=== PATIENT | female | born 1970 | race Caucasian/White ===

== ENCOUNTER 2016-08-30 14:49 | Emergency (ER) | payer OTHER ==
[~2016-08-30] VITALS: Ht 177.8 cm; Wt 122.5 kg
[~2016-08-30 14:49] MED LIST: CO-Q-10 200 MG-1 SGL PO; HYDROCHLOROTH12.5 M1 PO; LOPRESSOR 25MG25 MG PO; SERTRALINE HYDR50 MG PO; ZOFRAN4 M1 SL
--- NOTE | 2016-08-30 17:03 | ED UPPER/LOWER EXTREMITY COMPL ---
History of Present Illness General Chief Complaint: Laceration Procedure Stated Complaint: L LEG LAC' Source: patient Exam Limitations: no limitations Vital Signs & Intake/Output Vital Signs & Intake/Output Vital Signs Date Time Temp Pulse Resp B/P B/P Pulse O2 O2 Flow FiO2 Mean Ox Delivery Rate 08/30 1722 97.1 72 18 153/93 99 Room Air 08/30 1457 97.7 73 20 134/85 97 Room Air ED Intake and Output 08/31 0000 08/30 1200 Intake Total Output Total Balance Patient 270 lb Weight Weight Reported by Patient Measurement Method Allergies Coded Allergies: MDX - ASA (aspirin) (ASA (ASPIRIN)) ("I GET STUPID" 05/31/11) "DOPEY" MDX - Cephalosporin (CEPHALOSPORIN) ("I GET A FAT LIP" 05/31/11) SWELLING Reconcile Medications Coenzyme Q10/Vitamin E (Co-Q-10 200 MG-1 Iu) 1 SGL SGL 1 CAP PO DAILY SUPPLEMENT (Reported) Hydrochlorothiazide 12.5 MG TAB 1 TAB PO DAILY WATER PILL (Reported) Metoprolol Tartrate (Lopressor) 25 MG TAB 1 TAB PO BID HEART (Reported) Ondansetron (Zofran Odt) 4 MG ODT 1 ODT SL Q6P PRN NAUSEA SERTRALINE HCL (Sertraline Hydrochloride) 50 MG TAB 0.5 TAB PO DAILY MENTAL HEALTH (Reported) Triage Note: PT STATES SHE WAS CUTTING A BOARD WITH A RAZOR KNIFE AND IT SLIPPED CUTTING HER LEFT LEG. DRSG APPLIED BLEEDING CONTROLLED Triage Nurses Notes Reviewed? yes Onset: Abrupt Duration: hour(s): Timing: single episode today Severity: moderate Method of Injury: laceration No Modifying Factors: none : No Patient currently breastfeeds: No HPI: 46-year-old female presents complaining of laceration to left anterior lower leg. She states that today around 2:30 PM while she was using a razor blade she accidentally slipped and cut her leg. She is unsure of her last tetanus shot. She thinks that there are pieces of wood fragments in the wound. Denies any other skin changes. No fevers or chills. No abnormal discharge from the wound. (FERNANDA ESQUIVEL PA-C) Past History Travel History Traveled to [place] past 21 day No Medical History Any Pertinent Medical History? 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 No (FERNANDA ESQUIVEL PA-C) Review of Systems Review of Systems Constitutional: Reports: no symptoms. EENTM: Reports: no symptoms. Respiratory: Reports: no symptoms. Cardiovascular: Reports: no symptoms. Gastrointestinal/Abdominal: Reports: no symptoms. Genitourinary: Reports: no symptoms. Musculoskeletal: Reports: no symptoms. Skin: Reports: see HPI. Neurological/Psychological: Reports: no symptoms. Hematologic/Endocrine: Reports: no symptoms. Immunological: Reports: no symptoms. All Other Systems: Reviewed and Negative (FERNANDA ESQUIVEL PA-C) Physical Exam Physical Exam General Appearance: well developed/nourished, no apparent distress, alert, awake Head: atraumatic, normal appearance Eyes: Bilateral: normal appearance. Ears, Nose, Throat: hearing grossly normal Neck: normal inspection Back: normal inspection, normal range of motion Leg Left: 2 CM LACERATION TO LEFT ANTERIOR LOWER LEG Neurologic/Tendon: normal sensation, normal motor functions, normal tendon functions Skin: 2CM LACERATION TO LEFT ANTERIOR LOWER LEG (FERNANDA ESQUIVEL PA-C) Progress Differential Diagnosis: cellulitis, contusion, fracture, tendon injury Plan of Care: Current Medications Sig/Lionel Start time Last Medication Dose Stop Time Status Admin Tetanus/Diphtheria 0.5 ML ONCE ONE 08/30 1714 UNVr Toxoids Adsorbed 08/31 1715 (Decavac) Lidocaine/Epinephrine 3 ML ONCE ONE 08/30 1699 UNVr (Lidocaine 2% With 08/30 1700 Epi (2ML) Inj) Tetanus updated today. Wound closed with sutures, patient tolerated procedure well. Wound was extensively irrigated for foreign body or would particles. Patient was informed that there is a chance that a foreign body remains no foreign body was detected on physical exam. Patient will follow up in 7-10 days for suture removal. Patient was educated on signs and symptoms of infection. The patient is in agreement with the plan of care. She will follow up with any new or worsening symptoms or concerns. (FERNANDA ESQUIVEL PA-C) Departure Departure Disposition: HOME OR SELF CARE Condition: Stable Clinical Impression Primary Impression: Laceration Referrals: HIWOT MORALES MD (PCP/Family) Additional Instructions: Keep wound clean and dry, take Tylenol or Motrin as prescribed as needed for pain. Return In 7-10 days for suture removal. Watch for signs of infection including cloudy drainage, redness, swelling, increased pain, streaking up her leg. Return with any worsening symptoms or concerns. No foreign body detected with irrigation, there is always the chance of a foreign body present. Departure Forms: Customer Survey General Discharge Information (FERNANDA ESQUIVEL PA-C) PA/SOFT SUGAR CUTTER Co-Sign Statement Statement: ED Attending supervision documentation- I saw and evaluated the patient. I have also reviewed all the pertinent lab results and diagnostic results. I agree with the findings and the plan of care as documented in the PA's/SOFT SUGAR CUTTER's documentation. x I have reviewed the ED Record and agree with the PA's/SOFT SUGAR CUTTER's documentation. [] Additions or exceptions (if any) to the PAs/SOFT SUGAR CUTTER's note and plan are summarized below: [] (WILD SANCHEZ MD) Procedures Laceration/Wound Repair Laceration/Wound Repair: Wound Location: lower extremity Wound's Depth, Shape: linear, superficial Wound Length (cm): 2 Wound Explored: irrigated extensively Irrigated w/ Saline (ccs): 600 Betadine Prep? Yes Anesthesia: 2% lidocaine Volume Anesthetic (ccs): 6 Wound Repaired With: sutures Suture Size/Type: 4:0 Number of Sutures: 3 Layer Closure? No Sterile Dressing Applied: Yes Tetanus Status: up to date Progress: PATIENT TOLERATED PROCEDURE WELL (FERNANDA ESQUIVEL PA-C)
[2016-08-30 17:22] VITALS: BP 153/93
== END 2016-08-30 18:03 ==
LOC: ERH 14:49
DX: S81.812A Laceration without foreign body, left lower leg, initial encounter (principal); W45.8XXA Other foreign body or object entering through skin, initial encounter; Y93.E8 Activity, other personal hygiene; Y92.9 Unspecified place or not applicable
CPT/HCPCS: 90471; 90714

== ENCOUNTER 2016-09-14 23:17 | Observation (INO) | payer OTHER ==
[~2016-09-14] VITALS: Ht 177.8 cm; Wt 122.5 kg
--- NOTE | 2016-09-15 00:20 | RADIOLOGY REPORT ---
EXAMINATION: XR PORTABLE CHEST CLINICAL INFORMATION: Chest pain. COMPARISON: 05/13/2013 TECHNIQUE: Portable frontal view of the chest was obtained. FINDINGS: Cardiac leads overlie the chest. The lungs are well expanded. There is no focal consolidation, edema, or effusion. No pneumothorax. The cardiomediastinal silhouette is within normal limits. No acute osseous abnormality. IMPRESSION: No acute pulmonary findings.
[2016-09-15 00:28] LABS: ABSOLUTE BASOPHIL COUNT 0 /CUMM (0.0-0.2); ABSOLUTE EOSINOPHIL COUNT 0.2 /CUMM (0.0-0.7); ABSOLUTE GRANULOCYTE CT 2.8 /CUMM (1.4-6.5); ABSOLUTE LYMPH COUNT 2.6 /CUMM (1.2-3.4); ABSOLUTE MONOCYTE COUNT 0.6 /CUMM (0.10-0.60); BASOPHIL % 0.7 % (0.0-2.0); EOSINOPHIL % 2.7 % (0-5); GRANULOCYTE % 44.6 % (42.2-75.2); HEMATOCRIT 36.2 % (37-47); MEAN CORPUSCULAR HGB 27.1 PG (27.0-31.0); MEAN PLATELET VOLUME 8.5 FL (7.4-10.4); PLATELET COUNT 259 /CUMM (130-400); RBC DISTRIBUTION WIDTH 14.4 % (11.5-14.5); RED BLOOD CELL CT 4.42 /CUMM (4.20-5.40); WHITE BLOOD CELL COUNT 6.2 /CUMM (4.8-10.8)
--- NOTE | 2016-09-15 00:31 | ED CARDIAC/CP/PALPITATIONS ---
History of Present Illness General Chief Complaint: Chest Pain Stated Complaint: PT C/O CHEST PAIN HX HTN AND CARDIAC HX Source: patient, old records Exam Limitations: no limitations Vital Signs & Intake/Output Vital Signs & Intake/Output Vital Signs Date Time Temp Pulse Resp B/P B/P Pulse O2 O2 Flow FiO2 Mean Ox Delivery Rate 09/14 2350 97.9 86 20 139/86 96 Room Air ED Intake and Output 09/15 0000 09/14 1200 Intake Total Output Total Balance Patient 122.47 kg Weight Allergies Coded Allergies: MDX - ASA (aspirin) (ASA (ASPIRIN)) ("I GET STUPID" 05/31/11) "DOPEY" MDX - Cephalosporin (CEPHALOSPORIN) ("I GET A FAT LIP" 05/31/11) SWELLING Reconcile Medications Coenzyme Q10/Vitamin E (Co-Q-10 200 MG-1 Iu) 1 SGL SGL 1 CAP PO DAILY SUPPLEMENT (Reported) Hydrochlorothiazide 12.5 MG TAB 1 TAB PO DAILY WATER PILL (Reported) Metoprolol Tartrate (Lopressor) 25 MG TAB 1 TAB PO BID HEART (Reported) Ondansetron (Zofran Odt) 4 MG ODT 1 ODT SL Q6P PRN NAUSEA SERTRALINE HCL (Sertraline Hydrochloride) 50 MG TAB 0.5 TAB PO DAILY MENTAL HEALTH (Reported) Triage Note: PT FROM HOME C/O AROUND 1999 PT ATE DINNER AND NOTICED BURNING "LIKE ACID REFLUX" IN PTS STOMACH AND PT STATED THAT "IT WORKED ITS WAY UP TO MY CHEST WHERE IT FEELS TIGHT" PT STATES NUMBESS/TINGLING IN BILATERAL ARMS. PT DENIES JAW PAIN, BACK PAIN OR SHOULDER PAIN. PT STATES SOB, 97 ON RA, NO DISTRESS NOTED. AWAITING PROVIDER EVAL. Triage Nurses Notes Reviewed? yes HPI: 46F PMH HTN, strong family history of cardiac disease, former smoker, pre- diabetic, HLD presenting with acute episode of RUQ and chest pain. Patient had finished eating, felt acute RUQ pain that travelled to chest and felt like a burning, sour taste her mouth. The pain has settled as a mid-sternal chest tightness. She denies shortness of breath, dyspnea, palpitations, lightheadedness, diaphoresis. Cannot take aspirin as it causes an allergic reaction. No chest pain symptoms in the past several years. Past History Medical History Any Pertinent Medical History? 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 EENTM: Reports: no symptoms. Respiratory: Reports: no symptoms. Cardiovascular: Reports: see HPI. GI: Reports: no symptoms. Genitourinary: Reports: no symptoms. Musculoskeletal: Reports: no symptoms. Skin: Reports: no symptoms. Neurological/Psychological: Reports: no symptoms. Hematologic/Endocrine: Reports: no symptoms. Immunologic/Allergic: Reports: no symptoms. All Other Systems: Reviewed and Negative Physical Exam Physical Exam General Appearance: well developed/nourished, no apparent distress, alert, awake , anxious Head: atraumatic, normal appearance Eyes: Bilateral: normal appearance. Ears, Nose, Throat: normal ENT inspection Neck: normal inspection, full range of motion Respiratory: normal breath sounds, chest non-tender, no respiratory distress, quiet respiration, lungs clear Cardiovascular: regular rate/rhythm Gastrointestinal: soft, non-tender Back: normal range of motion Extremities: normal inspection, normal range of motion, no edema Neurologic/Psych: awake, alert, oriented x 3, normal mood/affect Skin: intact, normal color Progress Differential Diagnosis: AMI, aortic dissection, atrial fibrillation, cholecystitis, CHF/pulm edema, costochondritis, hyperkalemia, hypovolemia, hyperthyroid, hyperventilation, intracranial hemorrhage, musculoskeletal pain, myocarditis, pancreatitis, pericarditis, pneumonia, pneumothorax, PSVT, pulmonary embolism, PUD/GERD, PVCs/PACs, respiratory failure, rib fracture, sepsis, unstable angina, V-fib/V-Tach, WPW syndrome Plan of Care: Orders Procedure Date/time Status TROPONIN LEVEL 09/15 0200 Active EKG 09/15 0200 Active TROPONIN LEVEL 09/14 232 Complete HUMAN BETA HCG SCREEN 09/14 232 Complete D-DIMER 09/14 232 Complete COMPREHENSIVE METABOLIC PANEL 09/14 232 Complete CBC WITHOUT DIFFERENTIAL 09/14 2320 Complete EKG 09/15 2319 Active Laboratory Tests 09/14/16 2352: Anion Gap 11, Estimated GFR 54 L, BUN/Creatinine Ratio 15.5, Glucose 141 H, Calcium 9.8, Total Bilirubin 0.3, AST 34, ALT 57 H, Alkaline Phosphatase 85, Troponin I < 0.01, Total Protein 6.7, Albumin 4.3, Globulin 2.4, Albumin/ Globulin Ratio 1.8, Total Beta HCG NEGATIVE, D-Dimer High Sensitivty < 200, CBC w Diff NO MAN DIFF REQ, RBC 4.42, MCV 82.0, MCH 27.1, RDW 14.4, MPV 8.5, Gran % 44.6, Lymphocytes % 42.4, Monocytes % 9.6 H, Eosinophils % 2.7, Basophils % 0.7 , Absolute Granulocytes 2.8, Absolute Lymphocytes 2.6, Absolute Monocytes 0.6, Absolute Eosinophils 0.2, Absolute Basophils 0, PUBS MCHC 33.0 Initial ED EKG: normal sinus rhythm, no ST T wave changes Prior EKG: unchanged Departure Departure Condition: Stable Clinical Impression Primary Impression: Chest pain Secondary Impressions: GERD (gastroesophageal reflux disease) Referrals: HIWOT MORALES MD (PCP/Family) Departure Forms: Customer Survey General Discharge Information
--- NOTE | 2016-09-15 01:08 | ED CARDIAC/CP/PALPITATIONS ---
History of Present Illness General Chief Complaint: Chest Pain Stated Complaint: PT C/O CHEST PAIN HX HTN AND CARDIAC HX Source: patient, family, old records Exam Limitations: no limitations Vital Signs & Intake/Output Vital Signs & Intake/Output Vital Signs Date Time Temp Pulse Resp B/P B/P Pulse O2 O2 Flow FiO2 Mean Ox Delivery Rate 09/15 0350 98 Room Air 09/15 0157 97.8 67 20 139/82 98 Room Air 09/14 2350 97.9 86 20 139/86 96 Room Air ED Intake and Output 09/15 0000 09/14 1200 Intake Total Output Total Balance Patient 270 lb Weight Allergies Coded Allergies: MDX - ASA (aspirin) (ASA (ASPIRIN)) ("I GET STUPID" 05/31/11) "DOPEY" MDX - Cephalosporin (CEPHALOSPORIN) ("I GET A FAT LIP" 05/31/11) SWELLING Reconcile Medications Coenzyme Q10/Vitamin E (Co-Q-10 200 MG-1 Iu) 1 SGL SGL 1 CAP PO DAILY SUPPLEMENT (Reported) Hydrochlorothiazide 12.5 MG TAB 1 TAB PO DAILY WATER PILL (Reported) Metoprolol Tartrate (Lopressor) 25 MG TAB 1 TAB PO BID HEART (Reported) Ondansetron (Zofran Odt) 4 MG ODT 1 ODT SL Q6P PRN NAUSEA SERTRALINE HCL (Sertraline Hydrochloride) 50 MG TAB 0.5 TAB PO DAILY MENTAL HEALTH (Reported) Triage Note: PT FROM HOME C/O AROUND 1999 PT ATE DINNER AND NOTICED BURNING "LIKE ACID REFLUX" IN PTS STOMACH AND PT STATED THAT "IT WORKED ITS WAY UP TO MY CHEST WHERE IT FEELS TIGHT" PT STATES NUMBESS/TINGLING IN BILATERAL ARMS. PT DENIES JAW PAIN, BACK PAIN OR SHOULDER PAIN. PT STATES SOB, 97 ON RA, NO DISTRESS NOTED. AWAITING PROVIDER EVAL. Triage Nurses Notes Reviewed? yes HPI: 46F PMH HTN, strong family history of cardiac disease, former smoker, pre- diabetic, HLD presenting with acute episode of RUQ and chest pain. Patient had finished eating, felt acute RUQ pain that travelled to chest and felt like a burning, sour taste her mouth. The pain has settled as a mid-sternal chest tightness. She denies shortness of breath, dyspnea, palpitations, lightheadedness, diaphoresis. Cannot take aspirin as it causes an allergic reaction. No chest pain symptoms in the past several years. (THERON FIGUEROA MD) Past History Medical History Any Pertinent Medical History? 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 No (RIO YANG,NELL Snyder) Review of Systems Review of Systems Constitutional: Reports: no symptoms. EENTM: Reports: no symptoms. Respiratory: Reports: no symptoms. Cardiovascular: Reports: see HPI. GI: Reports: no symptoms. Genitourinary: Reports: no symptoms. Musculoskeletal: Reports: no symptoms. Skin: Reports: no symptoms. Neurological/Psychological: Reports: no symptoms. Hematologic/Endocrine: Reports: no symptoms. Immunologic/Allergic: Reports: no symptoms. All Other Systems: Reviewed and Negative (THERON FIGUEROA MD) Physical Exam Physical Exam General Appearance: well developed/nourished, no apparent distress, alert, awake , anxious Head: atraumatic, normal appearance Eyes: Bilateral: normal appearance. Ears, Nose, Throat: normal ENT inspection Neck: normal inspection, supple Respiratory: normal breath sounds, chest non-tender, no respiratory distress, quiet respiration Cardiovascular: regular rate/rhythm Gastrointestinal: soft, non-tender Back: normal range of motion Extremities: normal inspection, normal capillary refill, normal range of motion Skin: intact (THERON FIGUEROA MD) Core Measures ACS in differential dx? Yes ASA ordered for poss ACS? No-d/t known allergy Severe Sepsis Present: No Septic Shock Present: No (RIO YANG,NELL Snyder) Progress Differential Diagnosis: AMI, aortic dissection, atrial fibrillation, cholecystitis, CHF/pulm edema, costochondritis, hyperkalemia, hypovolemia, hyperthyroid, hyperventilation, intracranial hemorrhage, musculoskeletal pain, myocarditis, pancreatitis, pericarditis, pneumonia, pneumothorax, PSVT, pulmonary embolism, PUD/GERD, PVCs/PACs, respiratory failure, rib fracture, sepsis, unstable angina, V-fib/V-Tach, WPW syndrome Plan of Care: Orders Procedure Date/time Status Nothing by Mouth 09/15 B Active Saline Lock 09/[address] in observation 09/16 411 Active Misc Message 09/16 411 Active ED Holding Orders 09/16 411 Active Vital Signs 09/16 411 Active Code Status 09/16 411 Active TROPONIN LEVEL 09/15 199 Complete EKG 09/15 199 Active TROPONIN LEVEL 09/14 2320 Complete HUMAN BETA HCG SCREEN 09/14 2320 Complete D-DIMER 09/14 2320 Complete COMPREHENSIVE METABOLIC PANEL 09/14 2320 Complete CBC WITHOUT DIFFERENTIAL 09/14 2320 Complete EKG 09/15 2319 Active Laboratory Tests 09/15/16 0158: Troponin I < 0.01 09/14/162351: Anion Gap 11, Estimated GFR 54 L, BUN/Creatinine Ratio 15.5, Glucose 141 H, Calcium 9.8, Total Bilirubin 0.3, AST 34, ALT 57 H, Alkaline Phosphatase 85, Troponin I < 0.01, Total Protein 6.7, Albumin 4.3, Globulin 2.4, Albumin/ Globulin Ratio 1.8, Total Beta HCG NEGATIVE, D-Dimer High Sensitivty < 200, CBC w Diff NO MAN DIFF REQ, RBC 4.42, MCV 82.0, MCH 27.1, RDW 14.4, MPV 8.5, Gran % 44.6, Lymphocytes % 42.4, Monocytes % 9.6 H, Eosinophils % 2.7, Basophils % 0.7 , Absolute Granulocytes 2.8, Absolute Lymphocytes 2.6, Absolute Monocytes 0.6, Absolute Eosinophils 0.2, Absolute Basophils 0, PUBS MCHC 33.0 Initial ED EKG: NSR, no ST T wave changes Prior EKG: unchanged (HENRY YANG,[facility]) Diagnostic Imaging: Viewed by Me: Radiology Read. Discussed w/RAD: Radiology Read. CXR Impression: no acute abnormality, no infiltrates, normal size heart, normal mediastinum Repeat EKG: unchanged Comments: PATIENT: SALLY LAI PRESENT AGE: 46 PATIENT ACCOUNT NO: [id number] : 71 LOCATION: [facility] ORDERING PHYSICIAN: NELL PATE MD SERVICE DATE: 09/14/16-2320 EXAM TYPE: RAD - XRY-PORTABLE CHEST XRAY EXAMINATION: XR PORTABLE CHEST CLINICAL INFORMATION: Chest pain. COMPARISON: 05/13/2013 TECHNIQUE: Portable frontal view of the chest was obtained. FINDINGS: Cardiac leads overlie the chest. The lungs are well expanded. There is no focal consolidation, edema, or effusion. No pneumothorax. The cardiomediastinal silhouette is within normal limits. No acute osseous abnormality. IMPRESSION: No acute pulmonary findings. DICTATED BY: SUAD HARDING MD DATE/TIME DICTATED:09/15/1614 UX DESIGNER:MARYJANE DATE/TIME TRANSCRIBED:09/15/1614 CONFIDENTIAL, DO NOT COPY WITHOUT APPROPRIATE AUTHORIZATION. <Electronically signed in Other Vendor System> SIGNED BY: SUAD HARDING MD 09/15 0020 (NELL PATE MD) Departure Departure Condition: Stable Referrals: HIWOT MORALES MD (PCP/Family) Departure Forms: Customer Survey General Discharge Information (HENRY YANG,THERON) Departure Disposition: HOME OR SELF CARE Clinical Impression Primary Impression: Chest pain Comments 09/15/16, 4:05am... discussed at Dr. Pickett (covering for dr. caicedo). pt to be placed in observation for rule out, monitoring, and further management in the morning. Observation Note Spoke With: AIYANA PICKETT MD Physician Advisor Notified: JOSEPH CHESTER DO Place Patient In: Non-ED OBS Care Area Rationale for Observation: My rational for observation is as follows . pt with known positive stress test in recent weeks, now with recurrent chest pain, benign ekg's, negative trop x 2... pt is having stress echo later today... pt to be placed in obs, will see dr. caicedo, have stress test, consider cath. (NELL PATE MD) Critical Care Note Critical Care Note Critical Care Time: non-applicable (NELL PATE MD)
--- NOTE | 2016-09-15 05:29 | History & Physical ---
SASKIA BOLDEN MD 09/15/16 0528: General Information and HPI MD Statement: I have seen and personally examined SALLY LAI and documented this H& P. The patient is a 46 year old F who presented with a patient stated chief complaint of chest pain. Source of Information: patient Exam Limitations: no limitations History of Present Illness: 46 year old female with past medical history of hypertension, hyperlipidemia, family history of cardiac disease, prediabetes, former smoker presents with a chief complaint of chest pain. After finishing eating around 7PM, the patient suddenly felt acute epigastric pain, similiar in nature to heart burn. She states that it radiated towards her chest and right upper quadrant. She felt a burning sensation and sour taste her mouth but more intense than reflux she has ever experienced. The pain resulted in a dull chest tightness and ache that resolved over the next six or seven hours from rest. She reports feeling diaphoresis and nausea. She denies shortness of breath, dyspnea, palpitations, lightheadedness and vomiting. She did not take aspirin because she has any allergic reaction "sees colors vividly and becomes loopy". Her chest pains first started when walking quickly on a treadmill for exercise serveral months ago and has been seeing Dr. Mosquera since that time. She also reports recent job loss, therapy, lethargy, dyspnea on exertion and generally feeling low energy for several months. In the ED, her first two EKGs are negative for ischemic changes and troponins also negative. Patient's case was discussed with Dr. Pickett and because of a known positive stress test in recent weeks, she will be placed in observation, see Dr. Mosquera and have stress echo and possible cath. 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 Exam & Diagnostic Data Last 24 Hrs of Vital Signs/I&O Vital Signs Date Time Temp Pulse Resp B/P B/P Pulse O2 O2 Flow FiO2 Mean Ox Delivery Rate 09/15 0434 96.7 70 20 158/76 98 Room Air 09/15 0350 98 Room Air 09/15 0157 97.8 67 20 139/82 98 Room Air 09/14 2350 97.9 86 20 139/86 96 Room Air Intake & Output 09/15 0800 09/15 0000 09/14 1600 Intake Total Output Total Balance Patient 270 lb Weight Physical Exam General Appearance Alert, Oriented X3, Cooperative, No Acute Distress Skin No Rashes, No Breakdown Skin Temp/Moisture Exam: Warm/Dry HEENT Atraumatic, PERRLA, EOMI, Mucous Membr. moist/pink Neck Supple, No JVD, +2 Carotid Pulse wo Bruit Cardiovascular Regular Rate, Normal S1, Normal S2, No Murmurs Lungs Clear to Auscultation, Normal Air Movement Abdomen Normal Bowel Sounds, Soft, No Tenderness, No Masses Neurological Normal Gait, Normal Speech, Strength at 5/5 X4 Ext, Normal Tone, Sensation Intact Extremities No Edema, Normal Pulses, No Tenderness/Swelling Vascular Normal Pulses, Pulses Symmetrical Last 24 Hrs of Labs/Michele: Laboratory Tests 09/15/16 0158: Troponin I < 0.01 09/14/16 2352: Anion Gap 11, Estimated GFR 54 L, BUN/Creatinine Ratio 15.5, Glucose 141 H, Calcium 9.8, Total Bilirubin 0.3, AST 34, ALT 57 H, Alkaline Phosphatase 85, Troponin I < 0.01, Total Protein 6.7, Albumin 4.3, Globulin 2.4, Albumin/ Globulin Ratio 1.8, Amylase Pending, Lipase Pending, Total Beta HCG NEGATIVE, D- Dimer High Sensitivty < 200, CBC w Diff NO MAN DIFF REQ, RBC 4.42, MCV 82.0, MCH 27.1, RDW 14.4, MPV 8.5, Gran % 44.6, Lymphocytes % 42.4, Monocytes % 9.6 H, Eosinophils % 2.7, Basophils % 0.7, Absolute Granulocytes 2.8, Absolute Lymphocytes 2.6, Absolute Monocytes 0.6, Absolute Eosinophils 0.2, Absolute Basophils 0, PUBS MCHC 33.0 Diagnostic Data EKG Results NSR, no ischemic ST T changes CXR Results no acute pulmonary findings Assessment/Plan Assessment: 46 year old female with past medical history of hypertension, hyperlipidemia, family history of cardiac disease, prediabetes, former smoker presents with a chief complaint of chest pain. 1. Chest pain: First two sets of troponins and EKGs unlikely, ACS unlikely, unstable angina versus GI causes Follow up third set of troponin and EKG Patient scheduled for stress echocardiogram as outpatient Cardiology consult Arrange for stress echo as inpatient and possible cardiac catheterization. Follow up LFTs and consider PPI and RUQ ultrasound 2. HTN: Contine HCTZ, lisinopril on hold 3. VIC versus CKD: patients creatinine is 1.1 unknown baseline but patient reported recent renal function labs were also elevated. Will hold lisinopril for now Trend BUN/Cr 4. HLD: Continue statin therapy 4: Prediabetes: Check hemoglobin A1c Lipid Panel Continue Lexapro and trazodone for sleep Heart healthy diet DVT ppx-heparin 5000units subcutaneous Q8H Full code As Ranked By This Provider Problem List: 1. Hyperlipidemia 2. Chest pain 3. GERD (gastroesophageal reflux disease) Core Measures/Miscellaneous Acute Coronary Syndrome ACS Diagnosis: No Cerebrovascular Accident CVA/TIA Diagnosis: No Congestive Heart Failure CHF Diagnosis: No VTE (View Protocol) VTE Risk Factors: Acute medical illness, Age > 40, Obesity, Smoking No [facility] VTE prophylaxis d/t: No contraindications No VTE Pharm Prophylaxis d/t: No contraindications VTE Diagnosis: No VTE Type: NONE VTE Confirmed by (Test): NONE Sepsis (View Protocol) Severe Sepsis Present: No Septic Shock Septic Shock Present: No Miscellaneous Documentation Attending Case Discussed With: SWAPNIL YANG,ERIC Lange Primary Care Physician: HIWOT MORALES MD Patient sees these Specialists cardiology Level of Patient Care: Telemetry Resident Review Statement Resident Statement: examined this patient, discussed with manager intern, agreed with manager intern ANUM OREILLY 09/15/16 0607: General Information and HPI Allergies/Medications Home Med list Coenzyme Q10/Vitamin E (Co-Q-10 200 MG-1 Iu) 1 SGL SGL 1 CAP PO DAILY SUPPLEMENT (Reported) Escitalopram Oxalate 10 MG TABLET 1 TAB PO DAILY DEPRESSION (Reported) Hydrochlorothiazide 12.5 MG TAB 1 TAB PO DAILY WATER PILL (Reported) Lisinopril 40 MG TABLET 1 TAB PO DAILY HIGH BLOOD PRESSURE (Reported) Rosuvastatin Calcium (Crestor) 10 MG TABLET 1 TAB PO DAILY HIGH BLOOD PRESSURE (Reported) Trazodone HCl 50 MG TABLET 0.5 TAB PO DAILY AC INSOMNIA (Reported) Resident Review Statement Resident Statement: examined this patient, discussed with manager intern, agreed with manager intern Other Findings: Patient is 46-year-old female with past medical history significant for hypertension, hyperlipidemia, prediabetic with recent abnormal stress test came with chief complaint of severe epigastric/substernal chest pain last night. Patient endorses that after having dinner around 7:00 last night she was watching TV at all facet and she experienced severe epigastric/right subcostal chest pain radiating to mid chest/substernal, burning in nature, severe in intensity with feeling of chest pressure stayed for almost 5 minutes and went away on its own. Her symptoms were so concerning for her that she came to ED. She denied palpitations, dizziness, headache, nausea, vomiting, any urinary or bowel complaints. But at time of that event she experienced nausea as well. Patient sees Dr. Jung's group as outpatient. She had echocardiogram on September 01 and nuclear stress test on August 29. She was scheduled for stress echo this afternoon. Vital signs on admission temperature 97.9, pulse 86, respiratory rate 20, blood pressure 139/86 and she was saturating 96% on room air. Labs WBC count 6.2, hemoglobin 12.0, hematocrit 36.2, platelet count 259, sodium 142, potassium 4.4, BUNs 17, creatinine 1.1, troponins less than 0.01, Chest x-ray was negative for any acute cardiopulmonary pathology EKG was normal sinus rhythm with no acute ST-T wave changes. Physical examination Alert and oriented 3 Head atraumatic Neck supple Chest clear to auscultate S1-S2 normal with no added sounds Abdomen obese, normal bowel sounds, no organomegaly, Woods's negative, no tenderness, Extremities showed no edema or cyanosis Neurological deficit noted Assessment and plan 46-year-old obese female with past medical history of hypertension and hyperlipidemia came with chief complaint of substernal/epigastric chest pain concerning for underlying ACS. We will observe patient on telemetry floor for 24 hours and will take care for the following problems Problem #1 chest pain we will rule out ACS Problem 2 history of hypertension Problem #3 history of hypercholesterolemia Plan 1. We will observe patient on telemetry floor and will trend EKG and troponins to rule out ACS 2. Cardiology evaluation in a.m. and repeat decided for further workup including stress echo 3. We will continue all her home medications 4. We will check hemoglobin A1c and lipid profile 5. Patient was not given aspirin as she is allergic to aspirin. Heart healthy diet Pharmacological DVT prophylaxis Patient is full code
[2016-09-15] MEDS ORDERED: ESCITALOPRAM OX10 MG PO (05:58)
[2016-09-15] MEDS ORDERED: LISINOPRIL40 M1 PO (05:58)
[2016-09-15] MEDS ORDERED: CRESTOR20 M2 PO (05:59)
[2016-09-15] MEDS ORDERED: TRAZODONE HCL50 M1 PO (05:59)
[2016-09-15] MEDS ORDERED: CRESTOR10 M1 PO (06:00)
[2016-09-15 08:32] VITALS: BP 121/79
--- NOTE | 2016-09-15 08:40 | PN- Att Addend ---
Attending Addendum Attending Brief Note This is a 46-year-old female, who was admitted with atypical chest pain. An hour after eating while sitting she experienced some right upper quadrant abdominal discomfort that thereafter shortly radiated to the lower chest with a burning sensation in the chest that lasted for a few minutes and sequentially appeared 3 times. This left her with a residual discomfort in the central chest that lasted for several hours. She became concerned and therefore came into the hospital. She is a 46-year-old postmenopausal female who was seen in the office for complaints of some shortness of breath palpitations and reported edema of both legs. She started to walk a few months ago but was unable to walk because it she felt her heart pounding and she got out of breath. She has a family history for coronary disease in that her mother had a myocardial infarction in 50 and paternal uncle at 37 of [place] so she was concerned about this. She doesn't smoke now but she is to be a [id number] smoker. She was set up for a nuclear stress test and echocardiogram and a Holter recording. The echocardiogram and the Holter recording was benign. The nuclear stress test was interpreted with some anterior wall ischemic abnormality but on my review I suspected this might be more technically related to breast attenuation artifact. I therefore presented to the patient 3 options. Firstly that we proceed with a cardiac catheterization, secondly [facility] for a SPECT that scan that has attenuation correction, or see if the the abnormality repeated by another functional test stress echocardiogram which does not have attenuation issues. She elected to have a stress echocardiogram and this was reportedly scheduled this morning and the office but she presents here with this atypical chest discomfort. X Her stay in the ER so far it has been unremarkable. 3 EKGs have been normal, troponin have been negative 2. Therefore I presented the option of trying to obtain a stress echocardiogram had [facility] this admission prior to discharge. If this cannot be arranged then we can discharge her and elected either to proceed with an elective cardiac catheterization or a stress echocardiogram as the patient would decide. Upon further discussion she prefers to have a stress echocardiogram rather than a cardiac catheterization. I discussed the fact that we had no objective evidence of myocardial ischemia and her electro-cardiogram been normal troponins and her symptoms have been atypical more likely related to a GI issue. Therefore third troponins are pending. Physical exam has been unremarkable, records were reviewed, and stress echocardiogram in hospital will be planned. Case was discussed in detail with the medical house staff
--- NOTE | 2016-09-15 10:13 | Patient Discharge Instructions ---
Discharge Instructions General Discharge Information You were seen/treated for: 1. CHEST PAIN Special Instructions: PLEASE F/U WITH YOUR COMMUNICATION TECHNICIAN WITHIN 1 WEEK OF DISCHARGE REGARDING THE STRESS ECHO RESULTS. Diet Recommended Diet: Heart Healthy Activity Full Activity/No Limits: Yes ( TOLERATED) Acute Coronary Syndrome Inclusion Criteria At DC or during hospital stay patient has or had the following: ACS DIAGNOSIS No Discharge Core Measures Meds if any: Prescribed or Continued at Discharge Meds if any: NOT Prescribed or Continued at Discharge Congestive Heart Failure Inclusion Criteria At DC or during hospital stay patient has or had the following: CHF DIAGNOSIS No Discharge Core Measures Meds if any: Prescribed or Continued at Discharge Meds if any: NOT Prescribed or Continued at Discharge Cerebrovascular accident Inclusion Criteria At DC or during hospital stay patient has or had the following: CVA/TIA Diagnosis No Discharge Core Measures Meds if any: Prescribed or Continued at Discharge Meds if any: NOT Prescribed or Continued at Discharge Venous thromboembolism Inclusion Criteria VTE Diagnosis No VTE Type NONE VTE Confirmed by (Test) NONE Discharge Core Measures - Per Current guidelines, there needs to be overlap - treatment for the first 5 days of Warfarin therapy. - If discharged on Warfarin prior to 5 days of - overlap therapy, the patient will need to be - assessed for post discharge needs including - *Post discharge parental anticoagulation - *Warfarin and/or parental anticoagulation education - *Follow up date to check INR post discharge At least 5 days overlap therapy as Inpatient No Meds if any: Prescribed or Continued at Discharge Note: Overlap Therapy is Warfarin and Anticoagulant Meds if any: NOT Prescribed or Continued at Discharge
--- NOTE | 2016-09-15 11:34 | ECHOCARDIOGRAM REPORT ---
SALLY LAI Exam Date: 09/15/2016 10:05 Ordering Physician: ES ANNE, Referring Physician: ES ANNE MD Technologist: Johnny Ferrell ROSA Room Number: 3 Age: 46 : 1970 Gender: F Exam Location: ER Ht (in): 70 Wt (lb): 270 BSA: 2.51 Indication: Chest Pain Rhythm: Sinus Patient History: chest pain Cardiac Medications: NA Medications in past 24 hours: NA Contrast: Stress Results Protocol: Sarabjit Total dose(mL): Exercise Duration (min:sec): 8.0 METS: 9.1 Resting HR: 83 Resting BP: 121 / 79 Peak HR: 160 Peak BP: 170 / Max Predicted HR: 175 91 % Max Predicted HR Target HR: 149 Stress Summary: Normal decrease in left ventricular cavity size after stress with normal augmentation of wall thickeningGood exercise tolerance, achieving 9.1 METS and 91.43% of max predicted heart rate. BP Response: normal Reason for Termination: fatigue Cardiac Symptoms: none ECG Analysis Resting ECG: Normal Sinus and normal Stress ECG: no diagnostic st t changes Arrhythmia: None FINDINGS Normal augmentation of wall thickening with exercise. Good work load with attainment of near maximal heart rate. CONCLUSIONS Normal stress echo exam Jaxon Mosquera M.D. (Electronically Signed) Final Date: 15 September 2016 11:33 MEASUREMENTS (Male/Female) Normal Values
[2016-09-15 13:08] VITALS: BP 138/76
[2016-09-15] MEDS ORDERED: METOPROLOL TART25 M1 PO (13:45)
[2016-09-15] MEDS ORDERED: ATORVASTATIN CA40 M1 PO (13:51)
--- NOTE | 2016-09-15 16:14 | PN-Observation ---
Observation Note Observation Note _ I have personally examined SALLY LAI. her disposition is uncertain at this time. Before a determination can be made, she requires continued observation for the following reasons [chest pain]. Assessment/Plan Assessment: Patient is a 46-year-old female with a past medical history significant for hypertension and hyperlipidemia family history of cardiac disease, prediabetes, smoking but came to the ED after about one hour of chest pain/epigastric pain and tightness. From her description of the pain including the fact that it was epigastric, a sour taste in her mouth, the timing after a meal, and her history of GERD, her pain is likely digestive but needs to be evaluated by cardiology she has a family history of cardiac disease and history of hypertension and hyperlipidemia with a recent abnormal stress test. Her troponins were all negative and her EKGs were normal except for some poor R-wave progression. #1. Chest pain #2. Hypertension #3. GERD #4. Prediabetes Problem List: 1. Chest pain 2. GERD (gastroesophageal reflux disease) 3. Hypertension 4. Hyperlipidemia 5. Kidney disease 6. Prediabetes Plan: She is seen for evaluation of chest pain is placed on observation. She has had a known recent abnormal stress test and was supposed to have an outpatient stress test today. Chest pain: * Patient has had a recent nuclear stress test but because of breast attenuation further examination is warranted with either a stress echo or a cath. * It was decided that she have a stress echo which was done today and was negative. * Lopressor 12.5 mg twice a day as per Dr. Jung. * Start atorvastatin 40 mg by mouth daily. * Patient was given instructions to follow-up with Dr. Jung, cardiology in 1 week #2. Hypertension * Hydrochlorothiazide 12.5 mg daily is continued * Lisinopril 40 mg by mouth daily #3. GERD * Patient was given GI cocktail DVT/Prophylaxis: mechanical Subjective Follow-up For: Chest pain Complaints: pain scale (0-10) Subjective: Patient was seen and examined at bedside in the ED. She notes she has less chest pain, no shortness of breath or diaphoresis. Review of Systems Constitutional: Reports: no symptoms. EENTM: Reports: no symptoms. Cardiovascular: Reports: no symptoms. Respiratory: Reports: no symptoms. Gastrointestinal: Reports: no symptoms. Genitourinary: Reports: no symptoms. Musculoskeletal: Reports: no symptoms. Skin: Reports: no symptoms. Neurological/Psychological: Reports: no symptoms. Hematologic/Endocrine: Reports: no symptoms. Immunologic/Allergic: Reports: no symptoms. Objective Last 24 Hrs of Vital Signs/I&O Vital Signs Date Time Temp Pulse Resp B/P B/P Pulse O2 O2 Flow FiO2 Mean Ox Delivery Rate 09/15 1308 97.9 75 18 138/76 97 Room Air 09/15 1107 97.1 88 18 138/73 98 Room Air 09/15 0917 74 127/80 09/15 0832 98.4 70 18 121/79 98 Room Air 09/15 0749 98.2 70 16 121/79 98 Room Air 09/15 0434 96.7 70 20 158/76 98 Room Air 09/15 0350 98 Room Air 09/15 0157 97.8 67 20 139/82 98 Room Air 09/14 2350 97.9 86 20 139/86 96 Room Air Intake & Output 09/15 1600 09/15 0800 09/15 0000 Intake Total 300 Output Total Balance 300 Intake, Oral 300 Patient 270 lb Weight Physical Exam General Appearance: Alert, Oriented X3, Cooperative, No Acute Distress Skin: No Rashes, No Breakdown, No Significant Lesion Skin Temp/Moisture Exam: Warm/Dry Sepsis Skin Exam (color): Normal for Ethnicity HEENT: Atraumatic, PERRLA, EOMI, Mucous Membr. moist/pink Neck: Supple Cardiovascular: Regular Rate, Normal S1, Normal S2, No Murmurs, Gallops, Rubs Lungs: Clear to Auscultation Abdomen: Normal Bowel Sounds, Soft, No Tenderness, No Masses Neurological: Normal Speech Extremities: No Clubbing, No Cyanosis, No Edema, Normal Pulses, No Tenderness/ Swelling Vascular: Normal Pulses Sepsis Peripheral Pulse Location: Radial Sepsis Peripheral Pulse Exam: Normal Current Medications: Current Medications Sig/Lionel Start time Last Medication Dose Route Stop Time Status Admin Acetaminophen 650 MG Q6P PRN 09/15 0545 AC PO Atorvastatin Calcium 40 MG 1700 09/15 1700 AC PO Escitalopram Oxalate 10 MG DAILY 09/15 1000 AC 09/15 PO 09 Heparin Sodium 5,000 UNIT Q8 09/15 0600 AC (Porcine) SC Hydrochlorothiazide 12.5 MG DAILY 09/15 1000 AC 09/15 PO 09 Lisinopril 40 MG DAILY 09/15 1000 AC 09/15 PO 916 Metoprolol Tartrate 12.5 MG BID 09/15 1000 AC 09/15 PO 916 Trazodone HCl 25 MG DAILY AC 09/15 0700 AC PO Last 24 Hrs of Labs/Mics: Laboratory Tests 09/15/16 0835: Troponin I < 0.01 09/15/16 0158: Troponin I < 0.01 09/14/16 2352: Anion Gap 11, Estimated GFR 54 L, BUN/Creatinine Ratio 15.5, Glucose 141 H, Calcium 9.8, Total Bilirubin 0.3, AST 34, ALT 57 H, Alkaline Phosphatase 85, Troponin I < 0.01, Total Protein 6.7, Albumin 4.3, Globulin 2.4, Albumin/ Globulin Ratio 1.8, Amylase 50, Lipase 171, Total Beta HCG NEGATIVE, D-Dimer High Sensitivty < 200, CBC w Diff NO MAN DIFF REQ, RBC 4.42, MCV 82.0, MCH 27.1, RDW 14.4, MPV 8.5, Gran % 44.6, Lymphocytes % 42.4, Monocytes % 9.6 H, Eosinophils % 2.7, Basophils % 0.7, Absolute Granulocytes 2.8, Absolute Lymphocytes 2.6, Absolute Monocytes 0.6, Absolute Eosinophils 0.2, Absolute Basophils 0, PUBS MCHC 33.0
--- NOTE | 2016-09-15 17:13 | Discharge Summary ---
Hospital Course Allergies: Coded Allergies: Cephalosporins ("I GET A FAT LIP" 09/15/16) SWELLING aspirin ("I GET STUPID" 09/15/16) "DOPEY" Discharge Instructions Medications at Discharge Discharge Medications: Continue taking these medications: Hydrochlorothiazide (Hydrochlorothiazide) 12.5 MG TAB 1 Tablet ORAL DAILY Qty = 30 Coenzyme Q10/Vitamin E (Co-Q-10 200 MG-1 Iu) 1 SGL SGL 1 Capsule ORAL DAILY Lisinopril (Lisinopril) 40 MG TABLET 1 Tablet ORAL DAILY Qty = 30 Escitalopram Oxalate (Escitalopram Oxalate) 10 MG TABLET 1 Tablet ORAL DAILY Qty = 30 Trazodone HCl (Trazodone HCl) 50 MG TABLET 0.5 Tablet ORAL DAILY BEFORE BREAKFAST Qty = 30 Rosuvastatin Calcium (Crestor) 10 MG TABLET 1 Tablet ORAL DAILY Qty = 30 Start taking the following new medications: Metoprolol Tartrate (Metoprolol Tartrate) 25 MG TABLET 0.5 Tablet ORAL TWICE DAILY Qty = 30 No Refills Atorvastatin Calcium (Atorvastatin Calcium) 40 MG TABLET 1 Tablet ORAL DAILY Qty = 30 No Refills
== END 2016-09-15 20:42 ==
LOC: ERH 23:17 → ERHI 09-15 04:12
PROVIDERS: Pediatrics; ADMIT Nuclear Medicine Nuclear Cardiology
DX: R07.9 Chest pain, unspecified (principal); I10 Essential (primary) hypertension; E78.5 Hyperlipidemia, unspecified; Z87.891 Personal history of nicotine dependence; K21.9 Gastro-esophageal reflux disease without esophagitis; R73.03 Prediabetes
CPT/HCPCS: 6090; 82436; 93005; 93010; 93016; 93017; 93350-TC; G0378; J1644